=== PATIENT | female | born 1990 | race Caucasian/White ===

== ENCOUNTER 2019-02-20 15:36 | Emergency (ER) | payer MEDICAID ==
[~2019-02-20] VITALS: Ht 149.9 cm; Wt 51.3 kg
[2019-02-20 15:47] VITALS: BP_SYST 110
--- NOTE | 2019-02-20 15:57 | NUR ---
Placed in room 4 . Placed on child monitor, blood pressure machine and pulse oximeter. To gown for exam. Side rails up. Report given to Arya NAJERA.
--- NOTE | 2019-02-20 16:38 | NUR ---
ER at bedside examining patient.
--- NOTE | 2019-02-20 16:40 | NUR ---
28 year old male patient a/x4. [facility]. pt states that she had a syncopal episode at [facility] [place]. pt states that she gave blood today and felt weak afterwards. pt states she feels fine now. pt pt denies chest pain, sob, nausea, dizziness, blurred vision. pt resting comfortably in er bed.
[2019-02-20 16:47] LABS: BASOPHILS % (AUTO) 0.4 % (0.0-2.0); EOSINOPHILS # (AUTO) 0.2 K/uL (0.0-0.4); EOSINOPHILS % (AUTO) 2.2 % (0.0-4.0); HEMOGLOBIN 10.1 g/dL (12.0-16.0); LYMPHOCYTES # (AUTO) 1.2 K/uL (1.0-5.5); LYMPHOCYTES % (AUTO) 13.9 % (20.5-51.5); MEAN CORPUSCULAR HEMOGLOBIN 31 pg (27-31); MEAN CORPUSCULAR HGB CONC 34 % (32-36); MEAN CORPUSCULAR VOLUME 93 fL (79.0-98.0); MONOCYTES # (AUTO) 0.5 K/uL (0.0-1.0); NEUTROPHILS # (AUTO) 6.8 K/uL (1.8-7.7); NEUTROPHILS % (AUTO) 77.5 % (40.0-70.0); PLATELET COUNT (AUTO) 234 K/uL (130-430); RED BLOOD CELL COUNT(AUTO) 3.21 MIL/uL (4.2-6.2); RED CELL DISTRIBUTION WIDTH 13.4 % (9.0-15.0); WHITE BLOOD COUNT (AUTO) 8.8 K/uL (4.8-10.8)
[2019-02-20 16:58] LABS: CALCIUM 8.3 mg/dL (8.4-11.0); CREATININE 0.54 mg/dL (0.55-1.30); POTASSIUM 3.6 mmol/L (3.5-5.1)
[2019-02-20 17:50] VITALS: BP_SYST 116
--- NOTE | 2019-02-20 17:50 | NUR ---
Patient given written and verbal discharge instructions and verbalizes understanding. ER MD discussed with patient the results and treatment provided. Patient in stable condition. ID arm band removed. IV catheter removed intact and dressing applied, no active bleeding. Opportunity for questions provided and answered. Medication side effect fact sheet provided.
== END 2019-02-20 17:50 | disposition home or self-care (01) ==
LOC: SED 15:36
DX: R55 Syncope and collapse (principal)
CPT/HCPCS: 36415; 80048; 81025; 85025; 93005; 99284